=== PATIENT | male | born 1960 | race Caucasian/White ===

== ENCOUNTER 2016-12-30 20:45 | Emergency (ER) | payer MEDICARE, OTHER ==
[~2016-12-30 20:45] MED LIST: CLON-481 PO; DILA2TAB4 PO; FOLI1TAB PO; HYDRA50 PO; METO25 PO; NIFE90 PO; SEVEL800 PO; SUCR5CHW PO; WALKER ROLLING
[2016-12-30 20:47] VITALS: BP 173/82; PULSE 94; RESP 20; TEMP 97.8; O2SAT 96
== END 2016-12-30 21:27 | disposition left against medical advice (07) ==
LOC: NED 20:45
DX: R10.9 Unspecified abdominal pain (principal)
CPT/HCPCS: 99281

== ENCOUNTER 2017-04-14 08:26 | Inpatient (IN) | payer MEDICARE, OTHER ==
[~2017-04-14] VITALS: Ht 175.3 cm; Wt 68.8 kg
[2017-04-14] VITALS (7 sets, daily range): BP systolic 137–241; BP diastolic 80–135; PULSE 58–75; RESP 16–20; TEMP 97.2–98.3; O2SAT 90–97
--- NOTE | 2017-04-14 08:40 | PD ---
HPI Chief Complaint: syncope Time Seen by Provider: 08:36 Travel History International Travel<30 days: No Contact w/Intl Traveler<30days: No Traveled to known affect area: No History of Present Illness HPI 56-year-old male with history of end-stage renal disease on dialysis last dialysis on Monday, follows up with Dr. Patel, presents to the ER today because he has not been feeling well for several days, dizziness, had a syncopal episode this morning. He denies any fevers, chest pains, shortness of breath, or any other symptoms. He has also had a recent diagnosis of zoster on the left chest wall and has been taking antiviral medications for several days. Modifying Factors: None Associated Signs & Symptoms: Syncope Risk Factors: Dialysis, on antiviral medications for zoster PFSH Past Medical History Atrial Fibrillation: Yes Anxiety: Yes Depression: Yes Cardiovascular Problems: Yes (HTN) Diabetes: Yes GERD: Yes Hepatitis: Yes (c) Hypertension: Yes Insomnia: Yes Migraines: Yes Pancreatitis: Yes Pneumonia: Yes Renal Failure: Yes Thyroid Disease: Yes Past Surgical History Abdominal Surgery: Yes (exploratory laporoscopy) Appendectomy: Yes Other Surgery: Yes (av fistula) Social History Alcohol Use: No Tobacco Use: Yes (/2 ppd) Substance Use: Yes (marijuana sometimes) Allergies-Medications (Allergen,Severity, Reaction): Coded Allergies: morphine (Unverified Allergy, Intermediate, VOMITING, 04/14/17) Reported Meds & Prescriptions Reported Meds & Active Scripts Active Reported Prazosin (Prazosin HCl) 1 Mg Cap 1 Mg PO TID Fosrenol (Lanthanum Carbonate) 1,000 Mg Tab 1,000 Mg CHEW TIDPC Dialyvite Vitamin D 5000 (Cholecalciferol) 5,000 Unit Cap 5,000 Units PO DAILY Doxycycline Hyclate 100 Mg Cap 100 Mg PO BID Clonidine (Clonidine HCl) 0.3 Mg Tab 0.3 Mg PO TID Hydralazine (Hydralazine HCl) 100 Mg Tab 50 Mg PO QID Take with meals Nifedipine ER 24 HR (Nifedipine) 60 Mg Tab 60 Mg PO BID Losartan (Losartan Potassium) 100 Mg Tab 100 Mg PO DAILY Valacyclovir (Valacyclovir HCl) 500 Mg Tab 500 Mg PO BID Metoprolol Tartrate 50 Mg Tab 50 Mg PO BID Review of Systems Except as stated in HPI: all other systems reviewed are Neg Physical Exam Narrative GENERAL: Well-developed middle age white male patient currently in moderate distress. Awake and oriented 3. SKIN: Focused skin assessment warm/dry. Notable left chest wall zoster with vesicle formation and erythema. Mildly tender to palpation in the left chest wall. HEAD: Atraumatic. Normocephalic. EYES: Pupils equal and round. No scleral icterus. No injection or drainage. ENT: No nasal bleeding or discharge. Mucous membranes pink and moist. NECK: Trachea midline. No JVD. CARDIOVASCULAR: Regular rate and rhythm. No murmur appreciated. RESPIRATORY: No accessory muscle use. Clear to auscultation. Breath sounds equal bilaterally. GASTROINTESTINAL: Abdomen soft, non-tender, nondistended. Hepatic and splenic margins not palpable. MUSCULOSKELETAL: No obvious deformities. No clubbing. No cyanosis. No edema. NEUROLOGICAL: Awake and alert. No obvious cranial nerve deficits. Motor grossly within normal limits. Normal speech. PSYCHIATRIC: Appropriate mood and affect; insight and judgment normal. Data Data Last Documented VS Vital Signs Date Time Temp Pulse Resp B/P (MAP) Pulse Ox O2 Delivery O2 Flow Rate FiO2 04/14/17 08:44 92 Room Air 04/14/17 08:39 98.3 75 16 Orders Orders Electrocardiogram (04/14/17 08:37) Complete Blood Count With Diff (04/14/17 08:37) Comprehensive Metabolic Panel (04/14/17 08:37) Magnesium (Mg) (04/14/17 08:37) Ckmb (Isoenzyme) Profile (04/14/17 08:37) Troponin I (04/14/17 08:37) Act Partial Throm Time (Ptt) (04/14/17 08:37) Prothrombin Time / Inr (Pt) (04/14/17 08:37) Chest, Single Ap (04/14/17 08:37) Ct Brain W/O Iv Contrast(Rout) (04/14/17 08:37) Ecg Monitoring (04/14/17 08:37) Iv Access Insert/Monitor (04/14/17 08:37) Oximetry (04/14/17 08:37) Sodium Chloride 0.9% Flush (Ns Flush) (04/14/17 08:45) Labs Laboratory Tests Test 04/14/17 08:40 White Blood Count 7.4 TH/MM3 Red Blood Count 3.59 MIL/MM3 Hemoglobin 10.7 GM/DL Hematocrit 33.4 % Mean Corpuscular Volume 93.0 FL Mean Corpuscular Hemoglobin 29.8 PG Mean Corpuscular Hemoglobin Concent 32.1 % Red Cell Distribution Width 17.5 % Platelet Count 196 TH/MM3 Mean Platelet Volume 7.8 FL Neutrophils (%) (Auto) 83.3 % Lymphocytes (%) (Auto) 6.1 % Monocytes (%) (Auto) 6.9 % Eosinophils (%) (Auto) 3.1 % Basophils (%) (Auto) 0.6 % Neutrophils # (Auto) 6.2 TH/MM3 Lymphocytes # (Auto) 0.5 TH/MM3 Monocytes # (Auto) 0.5 TH/MM3 Eosinophils # (Auto) 0.2 TH/MM3 Basophils # (Auto) 0.0 TH/MM3 CBC Comment DIFF FINAL Differential Comment Prothrombin Time 11.7 SEC Prothromb Time International Ratio 1.1 RATIO Activated Partial Thromboplast Time 28.4 SEC Blood Urea Nitrogen 57 MG/DL Creatinine 9.65 MG/DL Random Glucose 162 MG/DL Total Protein 7.3 GM/DL Albumin 2.8 GM/DL Calcium Level 8.1 MG/DL Magnesium Level 1.6 MG/DL Alkaline Phosphatase 96 U/L Aspartate Amino Transf (AST/SGOT) 16 U/L Alanine Aminotransferase (ALT/SGPT) 24 U/L Total Bilirubin 0.4 MG/DL Sodium Level 135 MEQ/L Potassium Level 4.6 MEQ/L Chloride Level 101 MEQ/L Carbon Dioxide Level 20.4 MEQ/L Anion Gap 14 MEQ/L Estimat Glomerular Filtration Rate 6 ML/MIN Total Creatine Kinase 43 U/L Troponin I 0.04 NG/ML MDM Medical Decision Making Medical Screen Exam Complete: Yes Emergency Medical Condition: Yes Medical Record Reviewed: Yes Interpretation(s) EKG shows NSR, no ST elevation or depression, and no arrhythmias. No significant T-wave inversions. Laboratory Tests Test 04/14/17 08:40 Red Blood Count 3.59 MIL/MM3 (4.50-5.90) Hemoglobin 10.7 GM/DL (13.0-17.0) Hematocrit 33.4 % (39.0-51.0) Red Cell Distribution Width 17.5 % (11.6-17.2) Neutrophils (%) (Auto) 83.3 % (16.0-70.0) Lymphocytes (%) (Auto) 6.1 % (9.0-44.0) Lymphocytes # (Auto) 0.5 TH/MM3 (1.0-4.8) Prothrombin Time 11.7 SEC (9.8-11.6) Blood Urea Nitrogen 57 MG/DL (7-18) Creatinine 9.65 MG/DL (0.60-1.30) Random Glucose 162 MG/DL (74-106) Albumin 2.8 GM/DL (3.4-5.0) Calcium Level 8.1 MG/DL (8.5-10.1) Sodium Level 135 MEQ/L (136-145) Carbon Dioxide Level 20.4 MEQ/L (21.0-32.0) Estimat Glomerular Filtration Rate 6 ML/MIN (>89) Last [address] 04/14/17836 Signed Impressions: Service Date/Time: Friday, April 14, 2017 08:58 - CONCLUSION: Normal examination. Todd Price MD Chest X-Ray 04/14/17836 Signed Impressions: Service Date/Time: Friday, April 14, 2017 08:53 - CONCLUSION: No acute disease. No significant change has occurred. Todd Price MD Differential Diagnosis Syncopal episode: Dehydration versus metabolic issues versus sepsis versus medication side effects Narrative Course CT scan of the brain did not show any signs of acute injuries or issues. EKG did not show significant dysrhythmias. Lab work shows significant elevation of BUN and creatinine but likely to be baseline for his this dialysis patient who needs dialysis today. He has no significant electrolyte abnormalities other than that. Cardiac enzymes are negative. Vital signs are stable in the ER. Blood sugar is unremarkable. At this point, I'm not sure whether this is a side effect to his new medication, Ganciclovir, or whether this is something related to his needed dialysis. My plan would be to admit him at this point for syncope. Case was discussed with Dr. Casarez for admission. Diagnosis Primary Impression: Syncope Admitting Information Admitting Physician Requests: Admit Renée Hill MD Apr 14, 2017 08:40
[2017-04-14] MEDS ORDERED: SODIUM CHLORIDE 0.9% FLUSH 10 ML FLUSH IVF PRN (08:45)
[2017-04-14 08:50] LABS: AUTOMATED NEUTROPHIL # 6.2 TH/MM3 (1.8-7.7); BASOPHIL % 0.6 % (0.0-2.0); EOSINOPHIL # 0.2 TH/MM3 (0-0.4); EOSINOPHIL % 3.1 % (0.0-4.0); HEMATOCRIT 33.4 % (39.0-51.0); HEMO FLAGS DIFF FINAL; LYMPH % 6.1 % (9.0-44.0); LYMPHOCYTE # 0.5 TH/MM3 (1.0-4.8); MEAN CORPUSCULAR HEMOGLOBIN 29.8 PG (27.0-34.0); MEAN CORPUSCULAR HGB CONC 32.1 % (32.0-36.0); MONO % 6.9 % (0.0-8.0); NEUT % 83.3 % (16.0-70.0); PLATELET COUNT 196 TH/MM3 (150-450); RED BLOOD COUNT 3.59 MIL/MM3 (4.50-5.90); RED CELL DISTRIBUTION WIDTH 17.5 % (11.6-17.2); WHITE BLOOD COUNT 7.4 TH/MM3 (4.0-11.0)
[2017-04-14] MEDS ORDERED: DOXY100C PO (08:54)
[2017-04-14] MEDS ORDERED: FOSR1000 CHEW (08:54)
[2017-04-14] MEDS ORDERED: CLON0.3T PO (08:54)
[2017-04-14] MEDS ORDERED: LOSA100T PO (08:54)
[2017-04-14] MEDS ORDERED: METO50TA PO (08:54)
[2017-04-14] MEDS ORDERED: VALA500T PO (08:54)
[2017-04-14] MEDS ORDERED: PRAZ1CAP PO (08:54)
[2017-04-14] MEDS ORDERED: NIFE60TA58 PO (08:54)
[2017-04-14] MEDS ORDERED: DIALCAP PO (08:54)
[2017-04-14] MEDS ORDERED: HYDR-3801 PO (08:54)
[2017-04-14 09:02] LABS: APTT (PATIENT) 28.4 SEC (24.3-30.1); INTERNATIONAL NORMALIZED RATIO 1.1 RATIO; PROTHROMBIN TIME - PATIENT 11.7 SEC (9.8-11.6)
[2017-04-14 09:05] LABS: ANION GAP 14 MEQ/L (5-15); AST (GOT) 16 U/L (15-37); BICARBONATE 20.4 MEQ/L (21.0-32.0); BLOOD UREA NITROGEN 57 MG/DL (7-18); CHLORIDE 101 MEQ/L (98-107); GLOMERULAR FILTRATION RATE 6 ML/MIN (>89); MAGNESIUM 1.6 MG/DL (1.5-2.5); POTASSIUM 4.6 MEQ/L (3.5-5.1); SODIUM (NA) 135 MEQ/L (136-145)
[2017-04-14 09:07] LABS: ALT (GPT) 24 U/L (12-78)
--- NOTE | 2017-04-14 09:09 | RADRPT ---
EXAM DATE/TIME: 04/14/2017 08:53 [facility] COMPARISON: CHEST SINGLE AP, January 06, 2016, 14:17. INDICATIONS : Palpitations, short of breath, painful shingles across abdomen and chest MEDICAL HISTORY : renal failure, cardiovascular disease, diabetic, shingles SURGICAL HISTORY : None. ENCOUNTER: Initial ACUITY: 1 day PAIN SCORE: 10/10 LOCATION: Bilateral chest FINDINGS: A single view of the chest demonstrates the lungs to be symmetrically aerated without evidence of mas s, infiltrate or effusion. The cardiomediastinal contours reveals left ventricular cardiomegaly whic h appears compensated. Osseous structures are intact. Stable prominence of bronchovascular markings in the left lung base CONCLUSION: No acute disease. No significant change has occurred. Todd Price MD on April 14, 2017 at 9:06 Board Certified Radiologist. This report was verified electronically.
[2017-04-14 09:10] LABS: ALKALINE PHOSPHATASE 96 U/L (45-117); TOTAL BILIRUBIN ADULT 0.4 MG/DL (0.2-1.0)
[2017-04-14 09:14] LABS: CREATINE KINASE 43 U/L (39-308)
--- NOTE | 2017-04-14 09:17 | RADRPT ---
EXAM DATE/TIME: 04/14/2017 08:58 [facility] COMPARISON: No previous studies available for comparison. INDICATIONS : Syncope. RADIATION DOSE: 32.74 CTDIvol (mGy) MEDICAL HISTORY : Hypertension. Shingles. Renal failure, chronic. SURGICAL HISTORY : Appendectomy. ENCOUNTER: Initial ACUITY: 1 day PAIN SCALE: 0/10 LOCATION: cranial TECHNIQUE: Multiple contiguous axial images were obtained of the head. Using automated exposure control and adj ustment of the mA and/or kV according to patient size, radiation dose was kept as low as reasonably a chievable to obtain optimal diagnostic quality images. DICOM format image data is available electro nically for review and comparison. FINDINGS: CEREBRUM: The ventricles are normal for age. No evidence of midline shift, mass lesion, hemorrhage or acute in farction. No extra-axial fluid collections are seen. POSTERIOR FOSSA: The cerebellum and brainstem are intact. The 4th ventricle is midline. The cerebellopontine angle i s unremarkable. EXTRACRANIAL: The visualized portion of the orbits is intact. SKULL: The calvaria is intact. No evidence of skull fracture. CONCLUSION: Normal examination. Todd Price MD on April 14, 2017 at 9:15 Board Certified Radiologist. This report was verified electronically.
[2017-04-14] MEDS ORDERED: NALOXONE HCL 0.4 MG/ML AMP IV PUSH PRN (10:15)
[2017-04-14] MEDS ORDERED: SODIUM CHLORIDE 0.9% FLUSH 10 ML FLUSH IV FLUSH PRN ×2 (10:15→16:15)
--- NOTE | 2017-04-14 10:34 | HHI.HP ---
HPI [facility] Primary [facility] Physician No Primary Care Physician Admission Diagnosis syncope Diagnoses: Chief Complaint: dizziness Travel History International Travel<30 Days: No Contact w/Intl Traveler <30 Da: No Traveled to Known Affected Are: No History of Present Illness 56-year-old male with history of end-stage renal disease on dialysis last dialysis on Monday, follows up with Dr. Patel, HTN, HLD, questionable h/o Afib not on anticoagulation,. presents to the emergency room because he has not been feeling well for several days. He complains of dizziness, had a syncopal episode this morning and came for further evaluation. He has a rash on his left chest was diagnosed with shingles and is taking ganciclovir for several days now. He denies any fevers, chest pains, shortness of breath, or any other symptoms. Review of Systems Except as stated in HPI: all other systems reviewed are Neg Past Family Social History Past Medical History DM2 End-stage renal disease, on hemodialysis Hypertension Chronic intermittent left lower quadrant pain. Migraines Patient reports history of irregular heartbeat. Not on anticoagulation. Patient reports history of thyroid disease Past history of pneumonia Patient reports chronic pancreatitis Patient reports history of hepatitis C History of GERD Past Surgical History Expiratory laparotomy, 2014, reportedly which was negative. Left knee surgery Reported Medications Reported Meds & Active Scripts Active Reported Prazosin (Prazosin HCl) 1 Mg Cap 1 Mg PO TID Fosrenol (Lanthanum Carbonate) 1,000 Mg Tab 1,000 Mg CHEW TIDPC Dialyvite Vitamin D 5000 (Cholecalciferol) 5,000 Unit Cap 5,000 Units PO DAILY Doxycycline Hyclate 100 Mg Cap 100 Mg PO BID Clonidine (Clonidine HCl) 0.3 Mg Tab 0.3 Mg PO TID Hydralazine (Hydralazine HCl) 100 Mg Tab 50 Mg PO QID Take with meals Nifedipine ER 24 HR (Nifedipine) 60 Mg Tab 60 Mg PO BID Losartan (Losartan Potassium) 100 Mg Tab 100 Mg PO DAILY Valacyclovir (Valacyclovir HCl) 500 Mg Tab 500 Mg PO BID Metoprolol Tartrate 50 Mg Tab 50 Mg PO BID Allergies: Coded Allergies: morphine (Unverified Allergy, Intermediate, VOMITING, 04/14/17) Family History Family history of heart disease, diabetes. Social History Tobacco use quarter pack per day, has smoked since teenage years. Denies alcohol use. Denies any illicit drugs. Lives with his nephew. Moved to [place] from [place]. Physical Exam Vital Signs Vital Signs Date Time Temp Pulse Resp B/P (MAP) Pulse Ox O2 Delivery O2 Flow Rate FiO2 04/14/17 08:44 92 Room Air 04/14/17 08:39 98.3 75 16 137/80 (99) 90 Room Air Physical Exam GENERAL: This is a well-nourished, well-developed patient, in no apparent distress. SKIN: No rashes, ecchymoses or lesions. Cool and dry. HEAD: Atraumatic. Normocephalic. No temporal or scalp tenderness. EYES: Pupils equal round and reactive. Extraocular motions intact. No scleral icterus. No injection or drainage. ENT: Nose without bleeding, purulent drainage or septal hematoma. Throat without erythema, tonsillar hypertrophy or exudate. Uvula midline. Airway patent. NECK: Trachea midline. No JVD or lymphadenopathy. Supple, nontender, no meningeal signs. CARDIOVASCULAR: Regular rate and rhythm without murmurs, gallops, or rubs. RESPIRATORY: Clear to auscultation. Breath sounds equal bilaterally. No wheezes , rales, or rhonchi. GASTROINTESTINAL: Abdomen soft, non-tender, nondistended. No hepato-splenomegaly , or palpable masses. No guarding. MUSCULOSKELETAL: Extremities without clubbing, cyanosis, or edema. No joint tenderness, effusion, or edema noted. No calf tenderness. Negative Homans sign bilaterally. NEUROLOGICAL: Awake and alert. Cranial nerves II through XII intact. Motor and sensory grossly within normal limits. Five out of 5 muscle strength in all muscle groups. Normal speech. Laboratory Laboratory Tests Test 04/14/17 08:40 White Blood Count 7.4 Red Blood Count 3.59 Hemoglobin 10.7 Hematocrit 33.4 Mean Corpuscular Volume 93.0 Mean Corpuscular Hemoglobin 29.8 Mean Corpuscular Hemoglobin Concent 32.1 Red Cell Distribution Width 17.5 Platelet Count 196 Mean Platelet Volume 7.8 Neutrophils (%) (Auto) 83.3 Lymphocytes (%) (Auto) 6.1 Monocytes (%) (Auto) 6.9 Eosinophils (%) (Auto) 3.1 Basophils (%) (Auto) 0.6 Neutrophils # (Auto) 6.2 Lymphocytes # (Auto) 0.5 Monocytes # (Auto) 0.5 Eosinophils # (Auto) 0.2 Basophils # (Auto) 0.0 CBC Comment DIFF FINAL Differential Comment Prothrombin Time 11.7 Prothromb Time International Ratio 1.1 Activated Partial Thromboplast Time 28.4 Blood Urea Nitrogen 57 Creatinine 9.65 Random Glucose 162 Total Protein 7.3 Albumin 2.8 Calcium Level 8.1 Magnesium Level 1.6 Alkaline Phosphatase 96 Aspartate Amino Transf (AST/SGOT) 16 Alanine Aminotransferase (ALT/SGPT) 24 Total Bilirubin 0.4 Sodium Level 135 Potassium Level 4.6 Chloride Level 101 Carbon Dioxide Level 20.4 Anion Gap 14 Estimat Glomerular Filtration Rate 6 Total Creatine Kinase 43 Troponin I 0.04 Result Diagram: 04/14/1783904/14/17839 Imaging Last Impressions Head CT 04/14/17836 Signed Impressions: Service Date/Time: Friday, April 14, 2017 08:58 - CONCLUSION: Normal examination. Todd Price MD Chest X-Ray 04/14/17836 Signed Impressions: Service Date/Time: Friday, April 14, 2017 08:53 - CONCLUSION: No acute disease. No significant change has occurred. MD Martín Hollinsi VTE Risk Assessment Caprini VTE Risk Assessment: Mod/High Risk (score >= 2) Caprini Risk Assessment Model Point Value = 1 Point Value = 2 Point Value = 3 Point Value = 5 Age 41-60 Minor surgery BMI > 25 kg/m2 Swollen legs Varicose veins or History of unexplained or recurrent spontaneous Oral contraceptives or hormone replacement Sepsis (< 1 month) Serious lung disease, including pneumonia (< 1 month) Abnormal pulmonary function Acute myocardial infarction Congestive heart failure (< 1 month) History of inflammatory bowel disease Medical patient at bed rest Age 61-74 Arthroscopic surgery Major open surgery (> 45 min) Laparoscopic surgery (> 45 min) Malignancy Confined to bed (> 72 hours) Immobilizing plaster cast Central venous access Age >= 75 History of VTE Family history of VTE Factor V Leiden Prothrombin 44129T Lupus anticoagulant Anticardiolipin antibodies Elevated serum homocysteine Heparin-induced thrombocytopenia Other congenital or acquired thrombophilia Stroke (< 1 month) Elective arthroplasty Hip, pelvis, or leg fracture Acute spinal cord injury (< 1 month) Prophylaxis Regimen Total Risk Factor Score Risk Level Prophylaxis Regimen 0-1 Low Early ambulation 2 Moderate Order ONE of the following: *Sequential Compression Device (SCD) *Heparin 5000 units SQ BID 3-4 Higher Order ONE of the following medications: *Heparin 5000 units SQ TID *Enoxaparin/Lovenox 40 mg SQ daily (WT < 150 kg, CrCl > 30 mL/min) *Enoxaparin/Lovenox 30 mg SQ daily (WT < 150 kg, CrCl > 10-29 mL/min) *Enoxaparin/Lovenox 30 mg SQ BID (WT < 150 kg, CrCl > 30 mL/min) AND/OR *Sequential Compression Device (SCD) 5 or more Highest Order ONE of the following medications: *Heparin 5000 units SQ TID (Preferred with Epidurals) *Enoxaparin/Lovenox 40 mg SQ daily (WT < 150 kg, CrCl > 30 mL/min) *Enoxaparin/Lovenox 30 mg SQ daily (WT < 150 kg, CrCl > 10-29 mL/min) *Enoxaparin/Lovenox 30 mg SQ BID (WT < 150 kg, CrCl > 30 mL/min) AND *Sequential Compression Device (SCD) Assessment and Plan Assessment and Plan Syncope CT head normal Check orthostatic BP Monitor VS closely EKG no changes from baseline Monitor on Telemetry. Holter monitor Neuro checks. Fall precautions Will do US carotids and 2D ECHO Left chest zoster Continue ganciclovir Anxiety/deoresion Consult psychiatry. Add xanax prn End-stage renal disease Continue Dialysis per nephrology. Diabetes mellitus type 2. Continue home meds. Senescent on dialysis. Monitor blood glucose. Hypertension Restart all blood pressure medications. Monitor VS Tobacco use. Counselled. Cessation advised. DVT Prophylaxis. SCDs/TEDs, renal dose lovenox Code Status full code Discussed Condition With patient, nurse, ED physician Physician Certification 2 Midnight Certification Type: Admission for Inpatient Services Order for Inpatient Services The services are ordered in accordance with Medicare regulations or non- Medicare payer requirements, as applicable. In the case of services not specified as inpatient-only, they are appropriately provided as inpatient services in accordance with the 2-midnight benchmark. Estimated LOS (days): 3 days is the estimated time the patient will need to remain in the hospital, assuming treatment plan goals are met and no additional complications. Post-Hospital Plan: Home Jolanta Casarez MD Apr 14, 2017 10:34
--- NOTE | 2017-04-14 11:26 | RADRPT ---
EXAM DATE/TIME: 04/14/2017 10:34 [facility] COMPARISON: No previous studies available for comparison. INDICATIONS : Syncope. MEDICAL HISTORY : Myocardial infarction. Hypertension. Gastroesophageal reflux disease. Hypothyroidism. A-fib. Pneumoni a. Renal failure. Hepatitis C. SURGICAL HISTORY : Appendectomy. Exploratory laporoscopic surgery. AV fistula. ENCOUNTER: Initial ACUITY: 1 day PAIN SCORE: 0/10 LOCATION: Bilateral neck PEAK SYSTOLIC VELOCITIES (cm/sec): ICA/CCA RATIO: Right: 0.6 Left: 1.0 ICA: Right: 53.7 Left: 102.2 CCA: Right: 93.1 Left: 103.2 ECA: Right: 86.6 Left: 100.0 VERTEBRAL: Right: 47.1 antegrade Left: 45.3 antegrade Elevated flow velocities and ICA/CCA ratios have been found to correlate with increased degrees of vessel stenosis, calculated as percentage of diameter relative to a normal segment of distal ICA/CCA FINDINGS: RIGHT CAROTID: No significant stenosis is visualized. Moderate amount of plaque. The waveforms are within normal mendieta its. LEFT CAROTID: No significant stenosis is visualized. Moderate amount of plaque. The waveforms are within normal mendieta its. VERTEBRAL ARTERIES: Antegrade flow is seen in both vertebral arteries. MISCELLANEOUS: None. CONCLUSION: Moderate amount of plaque but no hemodynamically significant stenosis in either carotid artery. Sb Zepeda MD on April 14, 2017 at 11:24 Board Certified Radiologist. This report was verified electronically.
[2017-04-14] MEDS ORDERED: LACTULOSE SYRUP 20 GM/30 ML CUP PO PRN (12:00)
[2017-04-14] MEDS ORDERED: BISACODYL 10 MG SUPP RECTAL PRN (12:00)
[2017-04-14] MEDS ORDERED: ONDANSETRON HCL 4 MG/2 ML VIAL IVP PRN (12:00)
[2017-04-14] MEDS: cloNIDine HCL 0.3 MG TAB PO SCH ×2 (12:57→18:21)
[2017-04-14] MEDS: hydrALAZINE HCL 100 MG TAB PO SCH ×3 (12:57→20:50)
[2017-04-14] MEDS: PRAZOSIN HCL 1 MG CAP PO SCH ×2 (12:58→18:22)
[2017-04-14] MEDS: ENOXAPARIN SODIUM 30 MG/0.3 ML SYRINGE SQ SCH (12:58)
[2017-04-14] MEDS: LANTHANUM CARBONATE 500 MG CHEWABLE TABLET CHEW SCH ×2 (12:59→18:21)
[2017-04-14] MEDS ORDERED: SODIUM CHLOR 0.9% 1000 ML INJ 1,000 ML OTHER PRN ×2 (16:03)
[2017-04-14] MEDS ORDERED: SODIUM CHLOR 0.9% 1000 ML INJ 1,000 ML IV PRN (16:03)
[2017-04-14] MEDS ORDERED: GENTAMICIN SULFATE (DIALYSIS USE ONLY) 20 MG/2 ML VIAL OTHER PRN (16:15)
[2017-04-14] MEDS ORDERED: diphenhydrAMINE HCL 25 MG CAP PO PRN (16:15)
[2017-04-14] MEDS ORDERED: MANNITOL 12.5 GM/50 ML VIAL IV PRN (16:15)
[2017-04-14] MEDS ORDERED: GELATIN 12 MM/7 MM FOAM TOP PRN (16:15)
[2017-04-14] MEDS ORDERED: ALBUMIN HUMAN 25% 25 GM/100 ML BAGP IV PRN (16:15)
[2017-04-14] MEDS ORDERED: HEPARIN SODIUM - IV 10,000 UNITS/10 ML VIAL PRN (16:15)
[2017-04-14] MEDS ORDERED: NITROGLYCERIN 0.4 MG SL 25 TABS/BTL SL PRN (16:15)
[2017-04-14] MEDS ORDERED: ONDANSETRON HCL 4 MG/2 ML VIAL IV PUSH PRN (16:15)
[2017-04-14] MEDS ORDERED: HEPARIN SODIUM - IV 10,000 UNITS/10 ML VIAL IV FLUSH PRN (16:15)
[2017-04-14] MEDS ORDERED: EPOETIN ALFA 10,000 UNITS/ML VIAL IV PRN (16:15)
--- NOTE | 2017-04-14 16:26 | EKG ---
Date Performed: 04/14/2017 Time Performed: 08:42:12 PTAGE: 56 years EKG: Sinus rhythm MODERATE VOLTAGE CRITERIA FOR LVH, CONSIDER NORMAL VARIANT NONSPECIFIC T-WAVE ABNORMALITY BORDERLINE ECG Since PREVIOUS TRACING , no significant change noted PREVIOUS TRACIN03/31/2017 11.31 DOCTOR: Maureen Fermin Interpretating Date/Time 04/14/2017 16:25:10
--- NOTE | 2017-04-14 17:53 | ECHRPT ---
Indication: CVA/TIA CONCLUSIONS The left ventricular systolic function is low normal with an estimated ejection fraction in the rang e of 50- 55%. Mild concentric left ventricular hypertrophy. Trace mitral valve regurgitation. Trace aortic valve regurgitation. There is trace tricuspid valve regurgitation. A moderate left sided pleural effusion is noted. BP: / HR: Rhythm: Sinus MEASUREMENTS (Male / Female) Normal Values Technical Quality:Good 2D ECHO LV Diastolic Diameter PLAX 5.7 cm 4.2 - 5.9 / 3.9 - 5.3 cm LV Systolic Diameter PLAX 4.4 cm IVS Diastolic Thickness 1.6 cm 0.6 - 1.0 / 0.6 - 0.9 cm LVPW Diastolic Thickness 1.0 cm 0.6 - 1.0 / 0.6 - 0.9 cm LV Relative Wall Thickness 0.5 RV Internal Dim ED PLAX 3.1 cm LA Systolic Diameter LX 4.8 cm 3.0 - 4.0 / 2.7 - 3.8 cm DOPPLER AV Peak Velocity 194.0 cm/s AV Peak Gradient 15.1 mmHg LVOT Peak Velocity 104.0 cm/s LVOT Peak Gradient 4.3 mmHg MV Peak Velocity 152.0 cm/s MV Peak Gradient 9.2 mmHg MV Mean Velocity 70.1 cm/s MV Mean Gradient 3.0 mmHg MR Peak Velocity 462.0 cm/s MR Peak Gradient 85.4 mmHg Mitral E Point Velocity 116.0 cm/s Mitral A Point Velocity 110.0 cm/s Mitral E to A Ratio 1.1 LV E' Lateral Velocity 7.1 cm/s Mitral E to LV E' Lateral Ratio 16.3 LV E' Septal Velocity 4.6 cm/s Mitral E to LV E' Septal Ratio 25.3 TR Peak Velocity 291.0 cm/s TR Peak Gradient 33.9 mmHg Right Atrial Pressure 5.0 mmHg Pulmonary Artery Systolic Pressu 38.9 mmHg Right Ventricular Systolic Press 38.9 mmHg FINDINGS LEFT VENTRICLE Normal left ventricular size. Mild concentric left ventricular hypertrophy. The left ventricular systolic function is low normal with an estimated ejection fraction in the rang e of 50- 55%. RIGHT VENTRICLE Normal right ventricular size and systolic function. LEFT ATRIUM The left atrial size is mildly dilated. RIGHT ATRIUM The right atrial size is normal. ATRIAL SEPTUM Normal atrial septal thickness without atrial level shunting by limited color doppler interrogation. AORTA The aortic root and proximal ascending aorta are normal in size on limited imaging. MITRAL VALVE Moderate thickening of the mitral valve leaflets. Moderate mitral annular calcification. Trace mitral valve regurgitation. No mitral valve stenosis. AORTIC VALVE Aortic valve sclerosis is present. Mild thickening of the aortic valve leaflets. Trace aortic valve regurgitation. TRICUSPID VALVE Structurally normal tricuspid valve. There is trace tricuspid valve regurgitation. The estimated pulmonary arterial pressure is 38.9 mmHg. No tricuspid valve stenosis. PULMONARY VALVE No pulmonary valve regurgitation or stenosis. VESSELS The inferior vena cava is normal in size. PERICARDIUM A moderate left sided pleural effusion is noted. Tim Luke DO (Electronically Signed) Final Date:14 April 2017 17:51 Amended: 14 April 2017 18:32
--- NOTE | 2017-04-14 18:19 | MB ---
cc: OSVALDO NOBLE MD DATE OF CONSULTATION 04/14/17 REASON FOR CONSULTATION End-stage renal disease on hemodialysis for management. HISTORY OF PRESENT ILLNESS This is a 56-year-old male with past medical history of hypertension, diabetes mellitus, end-stage renal disease on hemodialysis Monday, and Monday, hepatitis C, gastroesophageal reflux disease who was brought to the hospital because of dizziness and confusion. I was called to see the patient for the management of dialysis. The patient has been on hemodialysis Monday, and Monday ago following with Dr. Matthews in [facility]. The patient was recently admitted at [facility]. According to the patient, he was discharged and he went for dialysis on of this week. He did not go yesterday because of he was feeling sick and tired and had dizziness and has been confused. He sometimes forgets his name and does not know exactly why he came in here and keeps repeating things. The patient seems to be noncompliant with his hemodialysis treatment. I have called [facility] and found out that he did not go there yesterday and they told me also that he has been noncompliant with his hemodialysis treatment. The patient recently had a rash on his lower chest and he was diagnosed with shingles and has been on Gancyclovir. He has no reported history of fever. Denies any chest pain. Occasionally, he has shortness of breath. PAST MEDICAL HISTORY 1. Hypertension, 2. Diabetes mellitus, 3. Chronic anemia, 4. Gastroesophageal reflux disease, 5. Hepatitis C, 6. End-stage renal disease on hemodialysis. PAST SURGICAL HISTORY 1. Laparotomy 2. Left knee surgery 3. Left arm AV fistula surgery. REVIEW OF SYSTEMS The patient has generalized weakness, feeling tired, has dizziness and feeling weak. There is no history of fever. He has mild shortness of breath, especially on exertion. No chest pain. He has been confused off and on and tends to forget things and sometime even does not remember his name, according to the patient, and he does not know exactly why he is here and keeps repeating things. He denies any abdominal pain. There is no history of diarrhea. SOCIAL HISTORY The patient has history of smoking, smoked 1/3 to 1/4 pack per day. There is no history of heavy alcoholism. FAMILY HISTORY Positive for heart disease and diabetes mellitus. ALLERGIES MORPHINE MEDICATIONS Currently, he is on following medications 1. Vibramycin 100 mg b.i.d. 2. Lopressor 50 mg b.i.d. 3. Nifedipine 60 mg b.i.d. 4. Valtrex 500 mg b.i.d. 5. vitamin D3 5000 units once a day. 6. Cozaar 100 mg daily. 7. Lovenox 30 mg subcu q. 24-hour. 8. Hydralazine 50 mg q.i.d. 9. Clonidine 0.3 mg t.i.d. 10. Minipress 1 mg t.i.d. 11. Fosrenol 1000 mg t.i.d. 12. Zofran as needed. 13. Ambien as needed. 14. Xanax as needed. EXAMINATION The patient is awake, alert. He is currently on dialysis last blood pressure is 148.97, temperature 97.2, oxygen saturation is 97% on room air. Pupils are mid constricted. Nonicteric sclera. Conjunctivae normal. Neck: Supple. JVD is not elevated. Lungs: The patient has bilateral good air entry with bibasilar wheezing. Heart: Sinus regular rhythm. Abdomen is soft lax. There is no tenderness. Bowel sounds positive. Extremities: There is mild edema in the legs, left arm AV fistula with good bruit investigation WBC count is 7.4, hemoglobin 10.70, platelet count 196, neutrophils 83.3%, sodium 35, potassium 4.6, chloride 101, bicarb 20.4, BUN 57, creatinine 9.6, calcium is 8.1, INR is 1.1. IMAGING STUDIES The patient has CT scan of the brain done which shows that he has normal examination. Ultrasound of the carotid arteries done which shows that he has moderate amount of leg but no hemodynamically significant stenosis. Chest x-ray Was done which shows lung escobar clear. ASSESSMENT/PLAN 1. Confusion, dizziness, possibly uremia. 2. End-stage renal disease on hemodialysis. 3. Hypertension 4. Diabetes mellitus 5. Anemia The patient has history of being noncompliant with hemodialysis. He recently has been admitted [facility] and also his shingles has been on get the valganciclovir and BUN and creatinine are elevated. He missed dialysis yesterday so will give him [facility] today and then put him back on his regular schedule for dialysis tomorrow so far the workup for dizziness is negative. If she remained stable possibly can be discharged tomorrow on Monday after dialysis. Thank you for the consultation. I will follow the patient while he is in the hospital MD NUVIA Lance/ /3:58 PM /5:55 PM
[2017-04-14] MEDS: ALPRAZolam 0.25 MG TAB PO PRN (18:21)
[2017-04-14] MEDS: NIFEdipine 60 MG SUSTAINED RELEASE TAB PO SCH (20:49)
[2017-04-14] MEDS: DOXYCYCLINE HYCLATE 100 MG CAP PO SCH (20:49)
[2017-04-14] MEDS: valACYclovir HCL 500 MG TAB PO SCH (20:50)
[2017-04-14] MEDS: SODIUM CHLORIDE 0.9% FLUSH 10 ML FLUSH IV FLUSH SCH (20:50)
[2017-04-14] MEDS: DOCUSATE SODIUM 50 MG/SENNA 8.6 MG TAB PO SCH (20:50)
[2017-04-14] MEDS ORDERED: MAGNESIUM HYDROXIDE SUSP 30 ML CUP PO PRN (21:00)
[2017-04-14] MEDS ORDERED: ZOLPIDEM TARTRATE 5 MG TAB PO PRN (21:00)
[2017-04-14] MEDS ORDERED: SENNOSIDES 8.6 MG TAB PO PRN (21:00)
[2017-04-14] MEDS: ACETAMINOPHEN 325 MG TAB PO PRN (21:00)
[2017-04-14] MEDS ORDERED: METOPROLOL TARTRATE 50 MG TAB PO SCH (21:00)
[2017-04-14] MEDS: cloNIDine HCL 0.1 MG TAB PO PRN (23:20)
[2017-04-15] VITALS (13 sets, daily range): BP systolic 110–222; BP diastolic 66–114; PULSE 54–88; RESP 16–20; TEMP 97.4–98.6; O2SAT 90–98
[2017-04-15] MEDS ORDERED: LORazepam 2 MG/ML VIAL IV PUSH ONE ×2 (01:00→10:15)
[2017-04-15] MEDS ORDERED: hydrALAZINE HCL 50 MG TAB PO ONE (01:15)
[2017-04-15] MEDS: ALPRAZolam 0.25 MG TAB PO PRN ×2 (08:03→21:42)
[2017-04-15] MEDS: CHOLECALCIFEROL (VIT D3) 5000 UNIT CAP PO SCH (09:00)
[2017-04-15] MEDS: SODIUM CHLORIDE 0.9% FLUSH 10 ML FLUSH IV FLUSH SCH ×2 (09:00→21:45)
[2017-04-15 09:05] LABS: AUTOMATED NEUTROPHIL # 4.2 TH/MM3 (1.8-7.7); BASOPHIL % 0.8 % (0.0-2.0); EOSINOPHIL # 0.2 TH/MM3 (0-0.4); EOSINOPHIL % 4.3 % (0.0-4.0); HEMATOCRIT 35.1 % (39.0-51.0); HEMO FLAGS DIFF FINAL; LYMPH % 10.6 % (9.0-44.0); LYMPHOCYTE # 0.6 TH/MM3 (1.0-4.8); MEAN CELL VOLUME 92.9 FL (80.0-100.0); MEAN CORPUSCULAR HEMOGLOBIN 30.1 PG (27.0-34.0); MEAN CORPUSCULAR HGB CONC 32.3 % (32.0-36.0); MONO % 5.9 % (0.0-8.0); NEUT % 78.4 % (16.0-70.0); PLATELET COUNT 197 TH/MM3 (150-450); RED BLOOD COUNT 3.78 MIL/MM3 (4.50-5.90); RED CELL DISTRIBUTION WIDTH 17.6 % (11.6-17.2); WHITE BLOOD COUNT 5.3 TH/MM3 (4.0-11.0)
[2017-04-15 09:20] LABS: BICARBONATE 25.9 MEQ/L (21.0-32.0)
--- NOTE | 2017-04-15 10:18 | HHI.NPPN ---
Subjective History of Present Illness 56-year-old male with past medical history of hypertension, diabetes mellitus, end-stage renal disease on hemodialysis Monday, and Monday, hepatitis C, gastroesophageal reflux disease who was brought to the hospital because of dizziness and confusion. I was called to see the patient for the management of dialysis. The patient has been on hemodialysis Monday, and Monday ago following with Dr. Matthews in [facility]. Additional Remarks Patient is now on HD, asking for Ativan for anxiety, no SOB, BP is elevated. Review of Systems General Constitutional: Fatigue Respiratory Lungs: SOB Cardiovascular Cardiac: Edema, MARIE Objective Data Data Vital Signs Date Time Temp Pulse Resp B/P (MAP) Pulse Ox O2 Delivery O2 Flow Rate FiO2 04/15/17 05:03 70 04/15/17 04:00 98.2 72 20 198/114 (142) 94 04/15/17 02:35 186/100 (128) 04/15/17 00:55 79 16 206/105 (138) 95 04/15/17 00:52 210/110 (143) 04/15/17 00:50 82 16 219/112 (147) 95 04/15/17 00:45 98.5 79 16 222/105 (144) 95 04/14/17 23:18 98.2 58 16 241/116 (157) 95 04/14/17 21:03 233/135 (167) 04/14/17 21:02 97.6 72 20 232/133 (166) 95 04/14/17 11:54 97.2 70 20 148/97 (114) 97 04/14/17 11:11 04/14/17 10:39 96 -: 04/15/17 0830 04/15/17 0830 Physical Exam General Appearance: No Acute Distress, Comfortable Eyes Eye Exam: Pupils Equal Throat Throat Exam: Oral Mucosa [place] & Moist Pulmonary Resp Exam: Clear Bilaterally, Breath Sounds Equal, No Distress Gastrointestinal/Abdomen GI Exam: Soft, Non-Tender, Bowel Sounds Present Integumentary Skin Exam: Clear, Warm Extremeties Extremities Exam: Trace Edema Neurologic Neuro Exam: Alert, Awake Psychiatric Psych Exam: Appropriate Responses Assessment/Plan Assessment Summary: Fluid/Volume Overload, Hypertension, End Stage Renal Disease Problem List: (1) Syncope ICD Codes: R55 - Syncope and collapse Status: Acute (2) Neuropathy ICD Codes: G62.9 - Polyneuropathy, unspecified Status: Acute (3) Generalized weakness ICD Codes: R53.1 - Weakness Status: Acute (4) Hypertension ICD Codes: I10 - Essential (primary) hypertension Status: Acute (5) ESRD (end stage renal disease) ICD Codes: N18.6 - End stage renal disease Status: Acute Plan Patient has been non compliant. Mentation is better and less confused. BP is still elevated, will D/C Metoprolol and add Labetalol. HD now, he is TTS. Control BP, has been on multiple meds. Discuss with the patient to be compliant with HD and meds. Jeovany Singh MD Apr 15, 2017 10:18
[2017-04-15] MEDS: cloNIDine HCL 0.1 MG TAB PO PRN (10:21)
[2017-04-15] MEDS: ACETAMINOPHEN 325 MG TAB PO PRN (11:10)
[2017-04-15] MEDS: PRAZOSIN HCL 1 MG CAP PO SCH ×3 (11:50→17:13)
[2017-04-15] MEDS: hydrALAZINE HCL 100 MG TAB PO SCH ×4 (11:51→21:42)
[2017-04-15] MEDS: DOCUSATE SODIUM 50 MG/SENNA 8.6 MG TAB PO SCH ×2 (11:51→21:42)
[2017-04-15] MEDS: LANTHANUM CARBONATE 500 MG CHEWABLE TABLET CHEW SCH ×3 (11:51→17:13)
[2017-04-15] MEDS: cloNIDine HCL 0.3 MG TAB PO SCH ×3 (11:52→17:13)
[2017-04-15] MEDS: LOSARTAN 50 MG TAB PO SCH (11:52)
[2017-04-15] MEDS: valACYclovir HCL 500 MG TAB PO SCH ×3 (11:52→21:41)
[2017-04-15] MEDS: DOXYCYCLINE HYCLATE 100 MG CAP PO SCH ×2 (11:52→21:42)
[2017-04-15] MEDS: ENOXAPARIN SODIUM 30 MG/0.3 ML SYRINGE SQ SCH (12:00)
[2017-04-15] MEDS: NIFEdipine 60 MG SUSTAINED RELEASE TAB PO SCH ×2 (12:12→21:42)
--- NOTE | 2017-04-15 12:40 | PD.PSY.CON ---
Provisional Diagnosis Admission Date Apr 14, 2017 at 10:24 History of Present Illness Service Psychiatry Consult Requested By Attending physician Reason for Consult Patient not available Primary Care Physician No Primary Care Physician HPI Patient unavailable for consultation today as he was in dialysis. Past Family Social History Coded Allergies: morphine (Verified Allergy, Intermediate, VOMITING, 04/19/17) Active Scripts Lanthanum (Fosrenol) 500 Mg Tab, 1000 MG CHEW TIDPC for Electrolyte Replacement , #90 EA 3 Refills Prov:Sb Gordillo MD 04/16/17 Losartan (Cozaar) 50 Mg Tab, 100 MG PO DAILY for Blood Pressure Management, #30 TAB 3 Refills Prov:Sb Gordillo MD 04/16/17 Nifedipine ER 24 HR (Nifedipine ER 24 HR) 60 Mg Tab, 60 MG PO BID for Blood Pressure Management, #60 TAB Prov:Sb Gordillo MD 04/16/17 Labetalol (Labetalol) 100 Mg Tab, 100 MG PO Q12HR for Blood Pressure Management , #60 TAB 3 Refills Prov:Sb Gordillo MD 04/16/17 Prazosin (Minipress) 1 Mg Cap, 1 MG PO TID for Blood Pressure Management, #120 CAP 3 Refills Prov:Sb Gordillo MD 04/16/17 Hydralazine (Hydralazine) 100 Mg Tab, 50 MG PO QID for Blood Pressure Management , #120 TAB 3 Refills Take with meals Prov:Sb Gordillo MD 04/16/17 Clonidine (Catapres) 0.3 Mg Tab, 0.3 MG PO TID for Blood Pressure Management, # 90 TAB 3 Refills Prov:Sb Gordillo MD 04/16/17 Valacyclovir (Valtrex) 500 Mg Tab, 1000 MG PO Q8HR for Infection, #12 TAB Prov:Sb Gordillo MD 04/16/17 Reported Medications Cholecalciferol (Dialyvite Vitamin D 5000) 5,000 Unit Cap, 5000 UNITS PO DAILY for Nutritional Supplement, CAP 0 Refills 04/14/17 Doxycycline Hyclate (Doxycycline Hyclate) 100 Mg Cap, 100 MG PO BID for Infection, CAP 0 Refills 04/14/17 Discontinued Reported Medications Prazosin (Prazosin) 1 Mg Cap, 1 MG PO TID for Blood Pressure Management, #90 CAP 0 Refills 04/14/17 Lanthanum (Fosrenol) 1,000 Mg Tab, 1000 MG CHEW TIDPC for Reduce Phosphorous, # 90 TAB 0 Refills 04/14/17 Clonidine (Clonidine) 0.3 Mg Tab, 0.3 MG PO TID for Blood Pressure Management, # 60 TAB 0 Refills 04/14/17 Hydralazine (Hydralazine) 100 Mg Tab, 50 MG PO QID for Blood Pressure Management , TAB 0 Refills Take with meals 04/14/17 Nifedipine ER 24 HR (Nifedipine ER 24 HR) 60 Mg Tab, 60 MG PO BID, #30 TAB 0 Refills 04/14/17 Losartan (Losartan) 100 Mg Tab, 100 MG PO DAILY for Blood Pressure Management, # 30 TAB 0 Refills 04/14/17 Valacyclovir (Valacyclovir) 500 Mg Tab, 500 MG PO BID for Mgmt Viral Infection, #60 TAB 0 Refills 04/14/17 Metoprolol Tartrate (Metoprolol Tartrate) 50 Mg Tab, 50 MG PO BID, #60 TAB 0 Refills 04/14/17 Current Medications Medications (Trade) Dose Ordered Sig/Abiola Route Start Time Stop Time Status Last Admin (NS Flush) 2 ml UNSCH PRN IV FLUSH 04/14/17 10:15 (NS Flush) 2 ml BID IV FLUSH 04/14/17 21:00 04/14/17 20:50 (Zofran Inj) 4 mg Q6HR PRN IVP 04/14/17 12:00 (Ambien) 5 mg HS PRN PO 04/14/17 21:00 (Lovenox Inj) 30 mg Q24H SQ 04/14/17 12:00 04/14/17 12:58 (Narcan Inj) 0.4 mg UNSCH PRN IV PUSH 04/14/17 10:15 ([place]-Colace) 1 tab BID PO 04/14/17 21:00 04/15/17 11:51 (Milk Of Magnesia Liq) 30 ml Q12HR PRN PO 04/14/17 21:00 (Senokot) 17.2 mg Q12HR PRN PO 04/14/17 21:00 (Dulcolax Supp) 10 mg DAILY PRN RECTAL 04/14/17 12:00 (Lactulose Liq) 30 ml DAILY PRN PO 04/14/17 12:00 (Vitamin D3) 5,000 units DAILY PO 04/15/17 09:00 04/15/17 09:00 (Catapres) 0.3 mg TID PO 04/14/17 13:00 04/15/17 11:52 (Vibramycin) 100 mg BID PO 04/14/17 21:00 04/15/17 11:52 (Apresoline) 50 mg QID PO 04/14/17 13:00 04/15/17 11:51 (Fosrenol Chew) 1,000 mg TIDPC CHEW 04/14/17 13:30 04/15/17 11:51 (Cozaar) 100 mg DAILY PO 04/15/17 09:00 04/15/17 11:52 (Procardia Xl) 60 mg BID PO 04/14/17 21:00 04/15/17 12:12 (Minipress) 1 mg TID PO 04/14/17 13:00 04/15/17 11:50 (Valtrex) 500 mg BID PO 04/14/17 21:00 04/15/17 11:52 (Xanax) 0.25 mg Q8H PRN PO 04/14/17 12:45 04/15/17 08:03 Sodium Chloride 1,000 ml @ 0 mls/hr Q0M PRN OTHER 04/14/17 16:03 04/15/17 10:52 (Heparin Inj) 8,000 units UNSCH PRN IV FLUSH 04/14/17 16:15 Sodium Chloride 1,000 ml @ 200 mls/hr Q5H PRN IV 04/14/17 16:03 Sodium Chloride 1,000 ml @ 0 mls/hr Q0M PRN OTHER 04/14/17 16:03 (Mannitol Inj) 12.5 gm UNSCH PRN IV 04/14/17 16:15 (Albumin 25% Inj) 25 gm UNSCH PRN IV 04/14/17 16:15 (NS Flush) 5 ml UNSCH PRN IV FLUSH 04/14/17 16:15 (Heparin Inj) UNSCH PRN .XX 04/14/17 16:15 (Gentamicin (Dialysis) Inj) 20 mg UNSCH PRN OTHER 04/14/17 16:15 (Zofran Inj) 4 mg UNSCH PRN IV PUSH 04/14/17 16:15 (Tylenol) 650 mg UNSCH PRN PO 04/14/17 16:15 04/15/17 11:10 (Benadryl) 25 mg UNSCH PRN PO 04/14/17 16:15 (Nitrostat Sl) 0.4 mg UNSCH PRN SL 04/14/17 16:15 (Catapres) 0.1 mg UNSCH PRN PO 04/14/17 16:15 04/15/17 10:21 (Epogen Inj) 4,000 units UNSCH PRN IV 04/14/17 16:15 04/15/17 10:51 (Gelfoam 12 Mm/7 Mm Top) 1 foam UNSCH PRN TOP 04/14/17 16:15 04/15/17 10:52 (Ultram) 50 mg Q6H PRN PO 04/14/17 21:00 (Trandate) 100 mg Q12HR PO 04/15/17 21:00 Physical Exam Vital Signs Vital Signs Date Time Temp Pulse Resp B/P (MAP) Pulse Ox O2 Delivery O2 Flow Rate FiO2 04/15/17 08:00 97.9 87 18 185/95 (125) 90 04/14/17 08:44 Room Air I/O 04/15/17 04/15/17 04/16/17 08:00 16:00 00:00 Output Total 2500 ml Balance -2500 ml Lab Results Test 04/15/17 08:30 White Blood Count 5.3 TH/MM3 Red Blood Count 3.78 MIL/MM3 Hemoglobin 11.3 GM/DL Hematocrit 35.1 % Mean Corpuscular Volume 92.9 FL Mean Corpuscular Hemoglobin 30.1 PG Mean Corpuscular Hemoglobin Concent 32.3 % Red Cell Distribution Width 17.6 % Platelet Count 197 TH/MM3 Mean Platelet Volume 8.1 FL Neutrophils (%) (Auto) 78.4 % Lymphocytes (%) (Auto) 10.6 % Monocytes (%) (Auto) 5.9 % Eosinophils (%) (Auto) 4.3 % Basophils (%) (Auto) 0.8 % Neutrophils # (Auto) 4.2 TH/MM3 Lymphocytes # (Auto) 0.6 TH/MM3 Monocytes # (Auto) 0.3 TH/MM3 Eosinophils # (Auto) 0.2 TH/MM3 Basophils # (Auto) 0.0 TH/MM3 CBC Comment DIFF FINAL Differential Comment Blood Urea Nitrogen 46 MG/DL Creatinine 8.24 MG/DL Random Glucose 138 MG/DL Calcium Level 8.5 MG/DL Sodium Level 137 MEQ/L Potassium Level 4.0 MEQ/L Chloride Level 101 MEQ/L Carbon Dioxide Level 25.9 MEQ/L Anion Gap 10 MEQ/L Estimat Glomerular Filtration Rate 7 ML/MIN Assessment & Plan Problem List: (1) ESRD (end stage renal disease) ICD Codes: N18.6 - End stage renal disease Status: Chronic Assessment & Plan Estimated LOS: days reconsult when patient available. Virgilio West MD Apr 15, 2017 12:40
[2017-04-15] MEDS: traMADol HCL 50 MG TAB PO PRN ×2 (12:58→18:31)
[2017-04-15] MEDS ORDERED: GLUCAGON 1 MG/ML VIAL OTHER PRN (13:15)
[2017-04-15] MEDS ORDERED: DEXTROSE 50% IN WATER 50 ML VIAL(D50) IV PUSH PRN (13:15)
--- NOTE | 2017-04-15 13:41 | HHI.PR ---
Subjective Remarks Follow-up syncope/flare up shingles/end-stage renal disease on HD 04/15/17-patient seen and examined, states he's going to withdrawal as his last use of heroin was 3 days ago however patient not currently on any methadone. Patient with also shingles to left anterior chest. Has HD today Objective Vitals Vital Signs Date Time Temp Pulse Resp B/P (MAP) Pulse Ox O2 Delivery O2 Flow Rate FiO2 04/15/17 12:00 98.1 86 16 195/104 (134) 96 04/15/17 08:00 97.9 87 18 185/95 (125) 90 04/15/17 05:03 70 04/15/17 04:00 98.2 72 20 198/114 (142) 94 04/15/17 02:35 186/100 (128) 04/15/17 00:55 79 16 206/105 (138) 95 04/15/17 00:52 210/110 (143) 04/15/17 00:50 82 16 219/112 (147) 95 04/15/17 00:45 98.5 79 16 222/105 (144) 95 04/14/17 23:18 98.2 58 16 241/116 (157) 95 04/14/17 21:03 233/135 (167) 04/14/17 21:02 97.6 72 20 232/133 (166) 95 I/O 04/14/17 04/14/17 04/14/17 04/15/17 04/15/17 04/15/17 07:00 15:00 23:00 07:00 15:00 23:00 Intake Total 360 ml Output Total 3000 ml 2500 ml Balance 360 ml -3000 ml -2500 ml Intake Oral 360 ml Output Hemodialysis 3000 ml 2500 ml # Voids 2 Result Diagram: 04/15/1782904/15/1730 Imaging Last Impressions Head CT 04/14/17836 Signed Impressions: Service Date/Time: Friday, April 14, 2017 08:58 - CONCLUSION: Normal examination. Todd Price MD Chest X-Ray 04/14/17836 Signed Impressions: Service Date/Time: Friday, April 14, 2017 08:53 - CONCLUSION: No acute disease. No significant change has occurred. Todd Price MD Carotid Artery Ultrasound 04/14/17 0000 Signed Impressions: Service Date/Time: Friday, April 14, 2017 10:34 - CONCLUSION: Moderate amount of plaque but no hemodynamically significant stenosis in either carotid artery. Sb Zepeda MD Objective Remarks GENERAL: NAD SKIN: Warm and dry. HEAD: Normocephalic. EYES: No scleral icterus. No injection or drainage. NECK: Supple, trachea midline. No JVD or lymphadenopathy. CARDIOVASCULAR: Regular rate and rhythm without murmurs, gallops, or rubs. RESPIRATORY: Breath sounds equal bilaterally. No accessory muscle use. GASTROINTESTINAL: Abdomen soft, non-tender, nondistended. MUSCULOSKELETAL: No cyanosis, or edema. BACK: Nontender without obvious deformity. No CVA tenderness. A/P Problem List: (1) Herpes zoster ICD Code: B02.9 - Zoster without complications (2) Syncope ICD Code: R55 - Syncope and collapse Status: Acute (3) Opioid withdrawal ICD Code: F11.23 - Opioid dependence with withdrawal Status: Acute (4) ESRD (end stage renal disease) ICD Code: N18.6 - End stage renal disease Status: Acute (5) Hypertension ICD Code: I10 - Essential (primary) hypertension Status: Acute Assessment and Plan 56-year-old man with Syncope Work out so far unremarkable Head CT, carotid ultrasound unremarkable Herpes zoster flareup Start Valacyclovir 1 g every 8 hour 7 days End-stage renal disease on hemodialysis Appreciate input from nephrology and continue with current HD Check phosphorus and all electrolyte, History of heroine use Check UDS Patient will need appointment with methadone clinic Tobacco abuse Counseled to quit Start nicotine patch Diabetes type 2 Check hemoglobin A1c Start insulin sliding scale Benign labile hypertension Continue outpatient medications Sb Gordillo MD Apr 15, 2017 13:41
[2017-04-15] MEDS: NICOTINE 21 MG/24 HR PATCH T-DERMAL SCH (16:20)
[2017-04-15] MEDS: REMOVE OLD PATCH T-DERMAL SCH (16:20)
[2017-04-15] MEDS: INSULIN ASPART SUPPLEMENTAL SCALE SQ SCH ×2 (17:42→21:00)
[2017-04-15] MEDS: LABETALOL HCL 100 MG TAB PO SCH (21:42)
[2017-04-15] MEDS ORDERED: ACETAMINOPHEN 325 MG TAB PO ONE (22:45)
[2017-04-15] MEDS ORDERED: LORazepam 1 MG TAB PO ONE (23:15)
[2017-04-16] VITALS: BP 148/91; PULSE 81; RESP 20; TEMP 98.2; O2SAT 94
[2017-04-16] MEDS: traMADol HCL 50 MG TAB PO PRN ×2 (00:53→06:38)
[2017-04-16 04:00] VITALS: BP 126/83; PULSE 76; RESP 20; TEMP 98.5; O2SAT 95
[2017-04-16] MEDS: ALPRAZolam 0.25 MG TAB PO PRN (06:39)
[2017-04-16] MEDS: valACYclovir HCL 500 MG TAB PO SCH (06:39)
[2017-04-16] MEDS: CHOLECALCIFEROL (VIT D3) 5000 UNIT CAP PO SCH (07:40)
[2017-04-16] MEDS: LABETALOL HCL 100 MG TAB PO SCH (07:40)
[2017-04-16] MEDS: cloNIDine HCL 0.3 MG TAB PO SCH (07:40)
[2017-04-16] MEDS: NICOTINE 21 MG/24 HR PATCH T-DERMAL SCH (07:40)
[2017-04-16] MEDS: DOXYCYCLINE HYCLATE 100 MG CAP PO SCH (07:41)
[2017-04-16] MEDS: LOSARTAN 50 MG TAB PO SCH (07:41)
[2017-04-16] MEDS: DOCUSATE SODIUM 50 MG/SENNA 8.6 MG TAB PO SCH (07:41)
[2017-04-16] MEDS: PRAZOSIN HCL 1 MG CAP PO SCH (07:41)
[2017-04-16] MEDS: NIFEdipine 60 MG SUSTAINED RELEASE TAB PO SCH (07:41)
[2017-04-16] MEDS: hydrALAZINE HCL 100 MG TAB PO SCH (07:41)
[2017-04-16] MEDS: INSULIN ASPART SUPPLEMENTAL SCALE SQ SCH (07:42)
[2017-04-16] MEDS: REMOVE OLD PATCH T-DERMAL SCH (07:48)
[2017-04-16 08:00] VITALS: BP 147/83; PULSE 79; RESP 20; TEMP 98.2; O2SAT 95
[2017-04-16 09:50] VITALS: O2SAT 95
--- NOTE | 2017-04-16 10:22 | HHI.PR ---
Subjective Remarks Follow-up syncope/flare up shingles/end-stage renal disease on HD 04/15/17-patient seen and examined, states he's going to withdrawal as his last use of heroin was 3 days ago however patient not currently on any methadone. Patient with also shingles to left anterior chest. Has HD today 04/16/17-patient seen and examined, BP well controlled now. Patient states he is not himself even though he is alert and oriented 3. Afebrile. Objective Vitals Vital Signs Date Time Temp Pulse Resp B/P (MAP) Pulse Ox O2 Delivery O2 Flow Rate FiO2 04/16/17 08:00 98.2 79 20 147/83 (104) 95 04/16/17 04:00 98.5 76 20 126/83 (97) 95 04/16/17 00:00 98.2 81 20 148/91 (110) 94 04/15/17 23:01 54 04/15/17 20:10 70 04/15/17 20:00 98.6 81 20 110/66 (81) 97 04/15/17 16:00 97.9 88 16 171/82 (111) 94 04/15/17 12:00 98.1 86 16 195/104 (134) 96 I/O 04/15/17 04/15/17 04/15/17 04/16/17 04/16/17 04/16/17 07:00 15:00 23:00 07:00 15:00 23:00 Intake Total 240 ml 240 ml Output Total 2500 ml Balance -2260 ml 240 ml Intake Oral 240 ml 240 ml Output Hemodialysis 2500 ml # Voids 2 4 Result Diagram: 04/15/1782904/15/17829 Imaging Last Impressions Head CT 04/14/17836 Signed Impressions: Service Date/Time: Friday, April 14, 2017 08:58 - CONCLUSION: Normal examination. Todd Price MD Chest X-Ray 04/14/17836 Signed Impressions: Service Date/Time: Friday, April 14, 2017 08:53 - CONCLUSION: No acute disease. No significant change has occurred. Todd Price MD Carotid Artery Ultrasound 04/14/17 0000 Signed Impressions: Service Date/Time: Friday, April 14, 2017 10:34 - CONCLUSION: Moderate amount of plaque but no hemodynamically significant stenosis in either carotid artery. Sb Zepeda MD Objective Remarks GENERAL: NAD SKIN: Warm and dry. HEAD: Normocephalic. EYES: No scleral icterus. No injection or drainage. NECK: Supple, trachea midline. No JVD or lymphadenopathy. CARDIOVASCULAR: Regular rate and rhythm without murmurs, gallops, or rubs. RESPIRATORY: Breath sounds equal bilaterally. No accessory muscle use. GASTROINTESTINAL: Abdomen soft, non-tender, nondistended. MUSCULOSKELETAL: No cyanosis, or edema. BACK: Nontender without obvious deformity. No CVA tenderness. Procedures None A/P Problem List: (1) Herpes zoster ICD Code: B02.9 - Zoster without complications (2) Syncope ICD Code: R55 - Syncope and collapse Status: Resolved (3) Opioid withdrawal ICD Code: F11.23 - Opioid dependence with withdrawal Status: Acute (4) ESRD (end stage renal disease) ICD Code: N18.6 - End stage renal disease Status: Chronic (5) Hypertension ICD Code: I10 - Essential (primary) hypertension Status: Chronic Assessment and Plan 56-year-old man with Syncope-resolved Work out so far unremarkable Head CT, carotid ultrasound unremarkable Herpes zoster flareup Continue Valacyclovir 1 g every 8 hour 7 days End-stage renal disease on hemodialysis Appreciate input from nephrology and continue with current HD Patient advised on compliance History of heroine use UDS positive for cocaine Patient will need appointment with methadone clinic Tobacco abuse Counseled to quit Continue nicotine patch Diabetes type 2 Check hemoglobin A1c Continue insulin sliding scale Benign labile hypertension Currently normotensive Continue outpatient medications Sb Gordillo MD Apr 16, 2017 10:22
[2017-04-16] MEDS ORDERED: NIFE60TA8 PO (10:29)
[2017-04-16] MEDS ORDERED: LANT500 CHEW (10:29)
[2017-04-16] MEDS ORDERED: PRAZ1 PO (10:29)
[2017-04-16] MEDS ORDERED: COZA50TA PO (10:29)
[2017-04-16] MEDS ORDERED: HYDR-3801 PO (10:29)
[2017-04-16] MEDS ORDERED: VALT500T PO (10:29)
[2017-04-16] MEDS ORDERED: LABE100T2 PO (10:29)
[2017-04-16] MEDS ORDERED: CLON-481 PO (10:29)
--- NOTE | 2017-04-16 10:33 | HHI.DS ---
Discharge Summary Admission Date Apr 14, 2017 at 10:24 Discharge Date: Apr 16, 2017 Admitting Diagnosis syncope (1) Herpes zoster ICD Code: B02.9 - Zoster without complications (2) Syncope ICD Code: R55 - Syncope and collapse Status: Resolved (3) Opioid withdrawal ICD Code: F11.23 - Opioid dependence with withdrawal Status: Acute (4) ESRD (end stage renal disease) ICD Code: N18.6 - End stage renal disease Status: Chronic (5) Hypertension ICD Code: I10 - Essential (primary) hypertension Status: Chronic Procedures None Brief History - From Admission 56-year-old male with history of end-stage renal disease on dialysis last dialysis on Monday, follows up with Dr. Patel, HTN, HLD, questionable h/o Afib not on anticoagulation,. presents to the emergency room because he has not been feeling well for several days. He complains of dizziness, had a syncopal episode this morning and came for further evaluation. He has a rash on his left chest was diagnosed with shingles and is taking ganciclovir for several days now. He denies any fevers, chest pains, shortness of breath, or any other symptoms. CBC/BMP: 04/15/17 0830 04/15/17 0830 Significant Findings Laboratory Tests Test 04/14/17 08:40 04/15/17 08:30 04/15/17 22:50 Red Blood Count 3.59 MIL/MM3 (4.50-5.90) 3.78 MIL/MM3 (4.50-5.90) Hemoglobin 10.7 GM/DL (13.0-17.0) 11.3 GM/DL (13.0-17.0) Hematocrit 33.4 % (39.0-51.0) 35.1 % (39.0-51.0) Red Cell Distribution Width 17.5 % (11.6-17.2) 17.6 % (11.6-17.2) Neutrophils (%) (Auto) 83.3 % (16.0-70.0) 78.4 % (16.0-70.0) Lymphocytes (%) (Auto) 6.1 % (9.0-44.0) Lymphocytes # (Auto) 0.5 TH/MM3 (1.0-4.8) 0.6 TH/MM3 (1.0-4.8) Prothrombin Time 11.7 SEC (9.8-11.6) Blood Urea Nitrogen 57 MG/DL (7-18) 46 MG/DL (7-18) Creatinine 9.65 MG/DL (0.60-1.30) 8.24 MG/DL (0.60-1.30) Random Glucose 162 MG/DL (74-106) 138 MG/DL (74-106) Albumin 2.8 GM/DL (3.4-5.0) Calcium Level 8.1 MG/DL (8.5-10.1) Sodium Level 135 MEQ/L (136-145) Carbon Dioxide Level 20.4 MEQ/L (21.0-32.0) Estimat Glomerular Filtration Rate 6 ML/MIN (>89) 7 ML/MIN (>89) Eosinophils (%) (Auto) 4.3 % (0.0-4.0) Urine Benzodiazepines Screen POS (NEG) Urine Cocaine Screen POS (NEG) Imaging Last Impressions Head CT 04/14/17836 Signed Impressions: Service Date/Time: Friday, April 14, 2017 08:58 - CONCLUSION: Normal examination. Todd Price MD Chest X-Ray 04/14/17836 Signed Impressions: Service Date/Time: Friday, April 14, 2017 08:53 - CONCLUSION: No acute disease. No significant change has occurred. Todd Price MD Carotid Artery Ultrasound 04/14/17 0000 Signed Impressions: Service Date/Time: Friday, April 14, 2017 10:34 - CONCLUSION: Moderate amount of plaque but no hemodynamically significant stenosis in either carotid artery. Sb Zepeda MD PE at Discharge GENERAL: NAD SKIN: Warm and dry. HEAD: Normocephalic. EYES: No scleral icterus. No injection or drainage. NECK: Supple, trachea midline. No JVD or lymphadenopathy. CARDIOVASCULAR: Regular rate and rhythm without murmurs, gallops, or rubs. RESPIRATORY: Breath sounds equal bilaterally. No accessory muscle use. GASTROINTESTINAL: Abdomen soft, non-tender, nondistended. MUSCULOSKELETAL: No cyanosis, or edema. BACK: Nontender without obvious deformity. No CVA tenderness. Hospital Course Patient admitted secondary to syncope for which a workup including head CT and carotid ultrasound and 2-D echo were unremarkable patient's condition improved. Nephrology was consulted and patient underwent hemodialysis. He was continued on his treatment for hypertension however Lopressor was discontinued and patient was started on labetalol 100 mg by mouth every 12 hours with improvement of BP. His medication for shingles were adjusted. DVT prophylaxis was provided. Pt Condition on Discharge: Stable Discharge Disposition: Discharge Home Discharge Time: <= 30 minutes Discharge Instructions DIET: Follow Instructions for: Renal Failure Diet Activities you can perform: Regular-No Restrictions Follow up Referrals: Nephrology - 2-3 Days PCP Follow-up - 1 Week New Medications: Clonidine (Catapres) 0.3 Mg Tab 0.3 MG PO TID for Blood Pressure Management, #90 TAB 3 Refills Hydralazine (Hydralazine) 100 Mg Tab 50 MG PO QID for Blood Pressure Management, #120 TAB 3 Refills Take with meals Labetalol (Labetalol) 100 Mg Tab 100 MG PO Q12HR for Blood Pressure Management, #60 TAB 3 Refills Lanthanum (Fosrenol) 500 Mg Tab 1000 MG CHEW TIDPC for Electrolyte Replacement, #90 EA 3 Refills Losartan (Cozaar) 50 Mg Tab 100 MG PO DAILY for Blood Pressure Management, #30 TAB 3 Refills Nifedipine ER 24 HR (Nifedipine ER 24 HR) 60 Mg Tab 60 MG PO BID for Blood Pressure Management, #60 TAB Prazosin (Minipress) 1 Mg Cap 1 MG PO TID for Blood Pressure Management, #120 CAP 3 Refills Valacyclovir (Valtrex) 500 Mg Tab 1000 MG PO Q8HR for Infection, #12 TAB Continued Medications: Cholecalciferol (Dialyvite Vitamin D 5000) 5,000 Unit Cap 5000 UNITS PO DAILY for Nutritional Supplement, CAP 0 Refills Doxycycline Hyclate (Doxycycline Hyclate) 100 Mg Cap 100 MG PO BID for Infection, CAP 0 Refills Discontinued Medications: Clonidine (Clonidine) 0.3 Mg Tab 0.3 MG PO TID for Blood Pressure Management, #60 TAB 0 Refills Hydralazine (Hydralazine) 100 Mg Tab 50 MG PO QID for Blood Pressure Management, TAB 0 Refills Take with meals Lanthanum (Fosrenol) 1,000 Mg Tab 1000 MG CHEW TIDPC for Reduce Phosphorous, #90 TAB 0 Refills Losartan (Losartan) 100 Mg Tab 100 MG PO DAILY for Blood Pressure Management, #30 TAB 0 Refills Metoprolol Tartrate (Metoprolol Tartrate) 50 Mg Tab 50 MG PO BID, #60 TAB 0 Refills Nifedipine ER 24 HR (Nifedipine ER 24 HR) 60 Mg Tab 60 MG PO BID, #30 TAB 0 Refills Prazosin (Prazosin) 1 Mg Cap 1 MG PO TID for Blood Pressure Management, #90 CAP 0 Refills Valacyclovir (Valacyclovir) 500 Mg Tab 500 MG PO BID for Mgmt Viral Infection, #60 TAB 0 Refills Sb Gordillo MD Apr 16, 2017 10:33
--- NOTE | 2017-04-16 11:17 | HHI.NPPN ---
Subjective History of Present Illness 56-year-old male with past medical history of hypertension, diabetes mellitus, end-stage renal disease on hemodialysis Monday, and Monday, hepatitis C, gastroesophageal reflux disease who was brought to the hospital because of dizziness and confusion. I was called to see the patient for the management of dialysis. The patient has been on hemodialysis Monday, and Monday ago following with Dr. Matthews in [facility]. Additional Remarks Patient is alert, has headache, afebrile, no SOB. Review of Systems General Constitutional: Fatigue Respiratory Lungs: SOB Cardiovascular Cardiac: Edema, MARIE Objective Data Data Vital Signs Date Time Temp Pulse Resp B/P (MAP) Pulse Ox O2 Delivery O2 Flow Rate FiO2 04/16/17 09:50 95 21 04/16/17 08:00 98.2 79 20 147/83 (104) 95 04/16/17 04:00 98.5 76 20 126/83 (97) 95 04/16/17 00:00 98.2 81 20 148/91 (110) 94 04/15/17 23:01 54 04/15/17 20:10 70 04/15/17 20:00 98.6 81 20 110/66 (81) 97 04/15/17 16:00 97.9 88 16 171/82 (111) 94 04/15/17 12:00 98.1 86 16 195/104 (134) 96 -: 04/15/17 0830 04/15/17 0830 Physical Exam General Appearance: No Acute Distress, Comfortable Eyes Eye Exam: Pupils Equal Throat Throat Exam: Oral Mucosa Villalba & Moist Pulmonary Resp Exam: Clear Bilaterally, Breath Sounds Equal, No Distress Gastrointestinal/Abdomen GI Exam: Soft, Non-Tender, Bowel Sounds Present Integumentary Skin Exam: Clear, Warm Extremeties Extremities Exam: Trace Edema Neurologic Neuro Exam: Alert, Awake Psychiatric Psych Exam: Appropriate Responses Assessment/Plan Assessment Summary: Fluid/Volume Overload, Hypertension, End Stage Renal Disease Problem List: (1) Syncope ICD Codes: R55 - Syncope and collapse Status: Resolved (2) Neuropathy ICD Codes: G62.9 - Polyneuropathy, unspecified Status: Acute (3) Generalized weakness ICD Codes: R53.1 - Weakness Status: Acute (4) Hypertension ICD Codes: I10 - Essential (primary) hypertension Status: Chronic (5) ESRD (end stage renal disease) ICD Codes: N18.6 - End stage renal disease Status: Chronic Plan Patient has been non compliant. Mentation is better and less confused. BP is better, started on Labetalol. HD now, he is TTS. Control BP, has been on multiple meds. Discuss with the patient to be compliant with HD and meds. Now for D/C, to go for HD on . and follow with Dr. Matthews. Problem Qualifiers (1) Syncope: Qualified Codes: R55 - Syncope and collapse Jeovany Singh MD Apr 16, 2017 11:17
[2017-04-16 12:00] VITALS: BP 127/82; PULSE 81; RESP 20; TEMP 97.9; O2SAT 97
[2017-04-17 13:29] LABS: HEMOGLOBIN A1a 1.3 %; HEMOGLOBIN A1b 2.2 %; HEMOGLOBIN Ao 82.7 %; HEMOGLOBIN LA1C 2.3 %; HEMOGLOBIN P3 6.1 %
== END 2017-04-16 16:38 | disposition home or self-care (01) | DRG 312 ==
LOC: NEPE 08:26 → NEDA 10:18 → OBSVTOIN 10:24 → N05B 11:14
PROVIDERS: ADMIT Hospitalist; ATTEND Hospitalist
PROC: 5A1D60Z (ICD-10-PCS; principal; 2017-04-14)
DX: R55 Syncope and collapse (principal); E11.22 Type 2 diabetes mellitus with diabetic chronic kidney disease; N18.6 End stage renal disease; I12.0 Hypertensive chronic kidney disease with stage 5 chronic kidney disease or end stage renal disease; K86.1 Other chronic pancreatitis; E87.70 Fluid overload, unspecified; F11.23 Opioid dependence with withdrawal; Z99.2 Dependence on renal dialysis; Z79.84 Long term (current) use of oral hypoglycemic drugs; B02.9 Zoster without complications; R10.32 Left lower quadrant pain; Z87.01 Personal history of pneumonia (recurrent); K21.9 Gastro-esophageal reflux disease without esophagitis; B19.20 Unspecified viral hepatitis C without hepatic coma; F17.210 Nicotine dependence, cigarettes, uncomplicated; F41.9 Anxiety disorder, unspecified; F32.9 Major depressive disorder, single episode, unspecified; E78.5 Hyperlipidemia, unspecified; Z91.15 Patient's noncompliance with renal dialysis; D64.9 Anemia, unspecified; R42 Dizziness and giddiness; E11.42 Type 2 diabetes mellitus with diabetic polyneuropathy; Z91.19 Patient's noncompliance with other medical treatment and regimen
CPT/HCPCS: 70450; 71010; 80048; 80053; 80307; 82550; 82948; 83036; 83735; 84484; 85025; 85610; 85730; 90935; 93005; 93306; 93880; 96374; J1650; J1815; J2060; J2405; J7030; Q4081

== ENCOUNTER 2017-04-19 22:36 | Emergency (ER) | payer MEDICARE, OTHER ==
[~2017-04-19] VITALS: Ht 175.3 cm; Wt 69.0 kg
[~2017-04-19 22:36] MED LIST changes: +COZA50TA PO; +DIALCAP PO; -DILA2TAB4 PO; +DOXY100C PO; -FOLI1TAB PO; +HYDR-3801 PO; -HYDRA50 PO; +LABE100T2 PO; +LANT500 CHEW; -METO25 PO; +NIFE60TA8 PO; -NIFE90 PO; +PRAZ1 PO; -SEVEL800 PO; -SUCR5CHW PO; +VALT500T PO; -WALKER ROLLING
[2017-04-19 22:48] VITALS: BP 152/87; PULSE 77; RESP 18; TEMP 98.7; O2SAT 94
[2017-04-19 23:02] VITALS: O2SAT 95
[2017-04-19 23:21] LABS: AUTOMATED NEUTROPHIL # 4.1 TH/MM3 (1.8-7.7); BASOPHIL % 0.6 % (0.0-2.0); EOSINOPHIL # 0.1 TH/MM3 (0-0.4); HEMATOCRIT 36.9 % (39.0-51.0); HEMO FLAGS DIFF FINAL; LYMPH % 20.2 % (9.0-44.0); LYMPHOCYTE # 1.2 TH/MM3 (1.0-4.8); MEAN CELL VOLUME 92.2 FL (80.0-100.0); MEAN CORPUSCULAR HEMOGLOBIN 30.8 PG (27.0-34.0); MEAN CORPUSCULAR HGB CONC 33.3 % (32.0-36.0); MONO % 7.7 % (0.0-8.0); NEUT % 69.5 % (16.0-70.0); PLATELET COUNT 265 TH/MM3 (150-450); RED BLOOD COUNT 4.01 MIL/MM3 (4.50-5.90); RED CELL DISTRIBUTION WIDTH 17.2 % (11.6-17.2); WHITE BLOOD COUNT 5.9 TH/MM3 (4.0-11.0)
[2017-04-19 23:38] LABS: ALKALINE PHOSPHATASE 101 U/L (45-117); TOTAL BILIRUBIN ADULT 0.6 MG/DL (0.2-1.0)
--- NOTE | 2017-04-19 23:39 | RADRPT ---
EXAM DATE/TIME: 04/19/2017 23:16 [facility] COMPARISON: CHEST SINGLE AP, April 14, 2017, 8:53. INDICATIONS : Short of breath. MEDICAL HISTORY : Hypertension. Shingles. Renal failure, chronic. SURGICAL HISTORY : Appendectomy. ENCOUNTER: Initial ACUITY: 1 day PAIN SCORE: Non-responsive. LOCATION: Bilateral chest FINDINGS: A single view of the chest demonstrates patchy basilar airspace disease similar to April 14. Trac e pleural fluid. Cardiomegaly. CONCLUSION: 1. Stable patchy basilar airspace disease compared with April 14. Trace pleural fluid. Gerson Galvan MD on April 19, 2017 at 23:35 Board Certified Radiologist. This report was verified electronically.
[2017-04-19 23:41] LABS: ALT (GPT) 32 U/L (12-78); ANION GAP 14 MEQ/L (5-15); AST (GOT) 54 U/L (15-37); BLOOD UREA NITROGEN 102 MG/DL (7-18); CHLORIDE 97 MEQ/L (98-107); GLOMERULAR FILTRATION RATE 4 ML/MIN (>89); MAGNESIUM 2.1 MG/DL (1.5-2.5); POTASSIUM 6.1 MEQ/L (3.5-5.1); SODIUM (NA) 133 MEQ/L (136-145)
--- NOTE | 2017-04-20 00:05 | PD ---
HPI Chief Complaint: Abdominal Pain Time Seen by Provider: 22:52 Travel History International Travel<30 days: No Contact w/Intl Traveler<30days: No Traveled to known affect area: No History of Present Illness HPI The patient is a 56 year old male who presents to the [facility] emergency department with a history of recurrent abdominal pain that he reports began again an hour prior to arrival. The patient reports that the pain is a 10 out of 10 in severity, however on arrival from ambulance services he was sleeping. The patient reports that he does have a history of IV drug use. He reports that he last used heroin 2 weeks ago, last used cocaine yesterday, and last used Xanax tonight. The patient reports he was recently admitted to the hospital for his abdominal pain, however after reviewing the electronic medical record he was admitted for syncope. The patient reports that he did not have his last dialysis session this week due to being in the hospital on Monday. The patient has been on hemodialysis for the last 2 years. The patient's blood sugar was noted prior to arrival be 98. He denies being on any blood thinners. He reports that he last moved his bowels yesterday. He denies having any blood in his stool or black or tarry stools. He reports having one episode of vomiting associated with this. He reports that the pain is a sharp pain in bilateral lower quadrants of the abdomen. He denies having any alleviating or aggravating factors to the pain. On review of systems otherwise, the patient denies having any known recent fevers, worsening cough or congestion, neck pain , chest pain, shortness of breath, or neurologic symptoms. [facility] Past Medical History Narrative Medical The patient's past medical history is significant for polysubstance abuse, chronic renal failure on hemodialysis, hepatitis C, hyperlipidemia, hypertension , prior history of myocardial infarction, diabetes mellitus, acid reflux, reported prior history of bowel obstruction. Arthritis: No Atrial Fibrillation: Yes Anxiety: Yes Depression: Yes Heart Rhythm Problems: No Cancer: No Cardiovascular Problems: Yes (HTN, PR) High Cholesterol: No Chest Pain: No Congestive Heart Failure: No Diabetes: Yes Patient Takes Glucophage: No GERD: Yes Genitourinary: No Hepatitis: Yes (c) Hypertension: Yes Insomnia: Yes Musculoskeletal: No Neurologic: No Psychiatric: Yes Reproductive: No Respiratory: No Migraines: Yes Pancreatitis: Yes Pneumonia: Yes Renal Failure: Yes Thyroid Disease: Yes Past Surgical History Narrative Surgical The patient's past surgical history is significant for exploratory laparoscopy related to a bowel obstruction, history of AV fistula placement in the left upper extremity. Abdominal Surgery: Yes (exploratory laporoscopy) AICD: No Appendectomy: Yes Arteriovenous Shunt: No Cardiac Surgery: No Ear Surgery: No Endocrine Surgery: No Eye Surgery: No Genitourinary Surgery: No Gynecologic Surgery: No Insulin Pump: No Joint Replacement: No Oral Surgery: No Pacemaker: No Thoracic Surgery: No Other Surgery: Yes (av fistula) Social History Alcohol Use: No Tobacco Use: Yes (07/25 ppd) Substance Use: Yes (marijuana, xanax, cocaine, heroin) Allergies-Medications (Allergen,Severity, Reaction): Coded Allergies: morphine (Verified Allergy, Intermediate, VOMITING, 04/19/17) Reported Meds & Prescriptions Reported Meds & Active Scripts Active Fosrenol (Lanthanum Carbonate) 500 Mg Tab 1,000 Mg CHEW TIDPC Cozaar (Losartan Potassium) 50 Mg Tab 100 Mg PO DAILY Nifedipine ER 24 HR (Nifedipine) 60 Mg Tab 60 Mg PO BID Labetalol (Labetalol HCl) 100 Mg Tab 100 Mg PO Q12HR Minipress (Prazosin HCl) 1 Mg Cap 1 Mg PO TID Hydralazine (Hydralazine HCl) 100 Mg Tab 50 Mg PO QID Take with meals Catapres (Clonidine) 0.3 Mg Tab 0.3 Mg PO TID Valtrex (Valacyclovir HCl) 500 Mg Tab 1,000 Mg PO Q8HR Reported Dialyvite Vitamin D 5000 (Cholecalciferol) 5,000 Unit Cap 5,000 Units PO DAILY Doxycycline Hyclate 100 Mg Cap 100 Mg PO BID Review of Systems Except as stated in HPI: all other systems reviewed are Neg General / Constitutional: No: Fever Eyes: No: Visual changes HENT: No: Headaches Cardiovascular: No: Chest Pain or Discomfort Respiratory: No: Shortness of Breath Gastrointestinal: Positive: Nausea, Vomiting (times one), Abdominal Pain, No: Diarrhea, Changes in Bowel Habits, Indigestion, Loss of Appetite Genitourinary: No: Urgency, Frequency, Dysuria Musculoskeletal: No: Pain Skin: No Rash Neurologic: No: Weakness Psychiatric: No: Depression Endocrine: No: Polydipsia Hematologic/Lymphatic: No: Easy Bruising Physical Exam Narrative General: The patient is a well-developed well-nourished male, in no acute distress. On arrival to this facility the patient is asleep on the gurney that he is brought in on by ambulance services. Head and Neck exam: Head is normocephalic atraumatic. Eyes: EOMI, pupils are equal round and reactive to light. Nose: Midline septum with pink mucous membranes Mouth: Dentition unremarkable. Moist mucus membranes. Posterior oropharynx is not erythematous. No tonsillar hypertrophy. Uvula midline. Airway patent. Neck: No palpable lymphadenopathy. No nuchal rigidity. No thyromegaly. Cardiovascular: Regular rate and rhythm without murmurs, gallops, or rubs. Lungs: Clear to auscultation bilaterally. No wheezes, rhonchi, or rales. Abdomen: Soft, with reported tenderness on palpation along the suprapubic area and bilateral lower quadrants of the abdomen, no other tenderness on palpation of the other quadrants of the abdomen. No tenderness on palpation specifically over McBurney's point. No guarding, rebound, or rigidity. Negative Flores's sign. Normal bowel sounds are audible. Extremities: No clubbing, cyanosis, or edema. 2+ pulses in all 4 extremities. No calf tenderness on palpation. Back: No costovertebral angle tenderness to palpation. Neurologic Exam: Grossly nonfocal. Skin Exam: The patient has And What Appears to Be Pick [place] along His Lower Extremities. No Evidence of Acute Infection, No Pustules. The Patient on Examination of the Left Upper Quadrant of the Abdomen Has a Dermatomal Pattern Rash Consistent with Shingles. He Reports That He Was Diagnosed with Shingles Approximately a Week Ago. Data Data Last Documented VS Vital Signs Date Time Temp Pulse Resp B/P (MAP) Pulse Ox O2 Delivery O2 Flow Rate FiO2 04/20/17 03:15 04/20/17 02:36 85 16 94 Room Air 04/19/17 23:02 2.00 04/19/17 22:48 98.7 Orders Orders Electrocardiogram (04/19/17 22:52) Complete Blood Count With Diff (04/19/17 22:52) Comprehensive Metabolic Panel (04/19/17 22:52) C-Reactive Protein (Crp) (04/19/17 22:52) Lipase (04/19/17 22:52) Magnesium (Mg) (04/19/17 22:52) Chest, Single Ap (04/19/17 22:52) Iv Access Insert/Monitor (04/19/17 22:52) Ecg Monitoring (04/19/17 22:52) Oximetry (04/19/17 22:52) Ct Abd/Pel W/O Iv Contrast (04/19/17 23:29) Sodium Polysty Sulfate Liq (Kayexalate L (04/20/17 00:45) Hydromorphone Pf Inj (Dilaudid Pf Inj) (04/20/17 02:15) Ondansetron Inj (Zofran Inj) (04/20/17 02:15) Labs Laboratory Tests Test 04/19/17 23:00 White Blood Count 5.9 TH/MM3 Red Blood Count 4.01 MIL/MM3 Hemoglobin 12.3 GM/DL Hematocrit 36.9 % Mean Corpuscular Volume 92.2 FL Mean Corpuscular Hemoglobin 30.8 PG Mean Corpuscular Hemoglobin Concent 33.3 % Red Cell Distribution Width 17.2 % Platelet Count 265 TH/MM3 Mean Platelet Volume 7.8 FL Neutrophils (%) (Auto) 69.5 % Lymphocytes (%) (Auto) 20.2 % Monocytes (%) (Auto) 7.7 % Eosinophils (%) (Auto) 2.0 % Basophils (%) (Auto) 0.6 % Neutrophils # (Auto) 4.1 TH/MM3 Lymphocytes # (Auto) 1.2 TH/MM3 Monocytes # (Auto) 0.5 TH/MM3 Eosinophils # (Auto) 0.1 TH/MM3 Basophils # (Auto) 0.0 TH/MM3 CBC Comment DIFF FINAL Differential Comment Blood Urea Nitrogen 102 MG/DL Creatinine 12.77 MG/DL Random Glucose 136 MG/DL Total Protein 8.3 GM/DL Albumin 3.2 GM/DL Calcium Level 8.8 MG/DL Magnesium Level 2.1 MG/DL Alkaline Phosphatase 101 U/L Aspartate Amino Transf (AST/SGOT) 54 U/L Alanine Aminotransferase (ALT/SGPT) 32 U/L Total Bilirubin 0.6 MG/DL Sodium Level 133 MEQ/L Potassium Level 6.1 MEQ/L Chloride Level 97 MEQ/L Carbon Dioxide Level 22.0 MEQ/L Anion Gap 14 MEQ/L Estimat Glomerular Filtration Rate 4 ML/MIN C-Reactive Protein 2.12 MG/DL Lipase 585 U/L MDM Medical Decision Making Medical Screen Exam Complete: Yes Emergency Medical Condition: Yes Medical Record Reviewed: Yes Interpretation(s) Last Impressions Abdomen/Pelvis CT 04/19/172328 Signed Impressions: Service Date/Time: March 00:49 - CONCLUSION: 1. No acute findings. 2. Stable cortical renal atrophy. Stable nodular thickening of the pleura at the left lung base. 3. Postop cholecystectomy and appendectomy. Gerson Galvan MD Chest X-Ray 04/19/[id number] Signed Impressions: Service Date/Time: Wednesday, April 19, 2017 23:16 - CONCLUSION: 1. Stable patchy basilar airspace disease compared with April 14. Trace pleural fluid. Gerson Galvan MD Differential Diagnosis Bowel obstruction, versus diverticulitis, versus colitis, versus drug-seeking behavior. Narrative Course During the course of the patients emergency department visit, the patients history, examination, and differential diagnosis were reviewed with the patient. The patient had IV access obtained and blood work sent for analysis. The patient was placed on a desk monitor with oximetry and blood pressure monitoring. An ECG was done on arrival. The patient's ECG reveals a sinus rhythm heart rate of 78, QRS duration is 98 ms, QTC 457 ms. No peaked T waves. No acute ST segment elevation The patient was initially provided morphine for pain, Zofran for nausea. The patients laboratory studies were reviewed and remarkable for a white count of 5.9, hemoglobin 12.3, platelets 265 with a normal differential, CMP is remarkable for sodium of 133, potassium 6.1 with mild hemolysis, chloride 97, BUN 102, creatinine 12.77, glucose 136, AST 54, C-reactive protein 2.12, total protein 8.3, albumin 3.2, lipase 585 Radiology studies were reviewed and remarkable for a chest x-ray that shows stable patchy bibasilar airspace disease compared with April 14 chest x-ray , trace pleural fluid. A CT scan of the abdomen and pelvis shows no acute findings. Stable cortical renal atrophy, stable nodular thickening of the pleura the left lung base. Postop cholecystectomy and appendectomy. A call was placed out to the patient's water pump operator. I spoke to Dr. Michele the covering water pump operator. I discussed with him the patient's history, physical exam findings, and laboratory studies. He was agreeable with the plan for the patient to receive a dose of Kayexalate. The patient has an appointment for hemodialysis this morning at 5 AM. He was agreeable with the plan for the patient to be discharged for hemodialysis. The patient is resting comfortably and feels better, is alert and in no distress. The patients results and examination findings were discussed with the patient. The repeat examination is unremarkable and benign. The history, exam, diagnostic testing, and current condition do not suggest any significant pathology to warrant further testing, continued ED treatment, admission, or surgical evaluation at this point. The vital signs have been stable. The patient does not have uncontrollable pain, intractable vomiting, or other significant symptoms. The patient's condition is stable and appropriate for discharge. The patient will pursue further outpatient evaluation with a primary care physician or other designated or consulting physician as indicated in the discharge instructions. The patient expressed understanding and was agreeable with this plan. Physician Communication Physician Communication A call was placed out to the patient's water pump operator, Dr. Matthews. The covering physician, Dr. Michele returned the phone call at approximately 2:25 AM. I discussed the patient's signs, symptoms, examination with him as well as the laboratory studies that were done today. Given the fact that the patient is scheduled for dialysis at 5 AM today he was agreeable with the plan for the patient to be discharged to have his dialysis done this morning. He was also agreeable with plans for the patient to receive a dose of Kayexalate. Diagnosis Primary Impression: Abdominal pain Qualified Codes: R10.30 - Lower abdominal pain, unspecified Additional Impression: Chronic renal failure Qualified Codes: N18.5 - Chronic kidney disease, stage 5 Referrals: Pam Grimaldo MD Patient Instructions: Abdominal Pain (ED), General Instructions Disposition: DISCHARGE HOME Condition: Stable Brandy Lewis MD Apr 20, 2017 00:05
[2017-04-20] MEDS ORDERED: SODIUM POLYSTYRENE SULFONATE SUSP 15 GM/60 ML CUP PO ONE (00:45)
--- NOTE | 2017-04-20 01:25 | RADRPT ---
EXAM DATE/TIME: 04/20/2017 00:49 [facility] COMPARISON: CT ABDOMEN & PELVIS W/O CONTRAST, March 08, 2016, 10:36. INDICATIONS : Abdomen pain. Possible obstruction. ORAL CONTRAST: No oral contrast ingested. RADIATION DOSE: 9.96 CTDIvol (mGy) MEDICAL HISTORY : Cardiovascular disease. Hypertension. Renal failure, chronic.Dialysis Hep C Diabetes SURGICAL HISTORY : Appendectomy. ENCOUNTER: Initial ACUITY: 1 day PAIN SCALE: 7/10 LOCATION: Bilateral abdomen TECHNIQUE: Volumetric scanning of the abdomen and pelvis was performed. Using automated exposure control and ad justment of the mA and/or kV according to patient size, radiation dose was kept as low as reasonably achievable to obtain optimal diagnostic quality images. DICOM format image data is available electro nically for review and comparison. FINDINGS: Compare February 2016. Again seen is some nodular pleural thickening at the left lung base and basal at electasis and scarring similar to prior exam. No acute findings in the liver, spleen or pancreas. Nodular enlargement of both adrenals is stable. H is renal cortical atrophy which is stable. Previous cholecystectomy. No bowel obstruction. No free air or free fluid. Residual contrast in large bowel. No acute bony abno rmalities. Colonic diverticula. CONCLUSION: 1. No acute findings. 2. Stable cortical renal atrophy. Stable nodular thickening of the pleura at the left lung base. 3. Postop cholecystectomy and appendectomy. Gerson Galvan MD on April 20, 2017 at 1:17 Board Certified Radiologist. This report was verified electronically.
[2017-04-20] MEDS ORDERED: ONDANSETRON HCL 4 MG/2 ML VIAL IV PUSH ONE (02:15)
[2017-04-20] MEDS ORDERED: HYDROmorphone HCL PF 1 MG/ML VIAL IV PUSH ONE (02:15)
[2017-04-20 02:36] VITALS: BP 172/84; PULSE 85; RESP 16; O2SAT 94
--- NOTE | 2017-04-20 17:14 | EKG ---
Date Performed: 04/19/2017 Time Performed: 23:07:58 PTAGE: 56 years EKG: Sinus rhythm POSSIBLE LEFT VENTRICULAR HYPERTROPHY ABNORMAL ECG Since PREVIOUS TRACING , no significant change noted PREVIOUS TRACIN04/14/2017 08.42 DOCTOR: Maureen Fermin Interpretating Date/Time 04/20/2017 17:13:45
== END 2017-04-20 03:18 | disposition home or self-care (01) ==
LOC: NEPC 22:36
DX: R10.30 Lower abdominal pain, unspecified (principal); E11.22 Type 2 diabetes mellitus with diabetic chronic kidney disease; I12.9 Hypertensive chronic kidney disease with stage 1 through stage 4 chronic kidney disease, or unspecified chronic kidney disease; N18.9 Chronic kidney disease, unspecified; F19.10 Other psychoactive substance abuse, uncomplicated; B19.20 Unspecified viral hepatitis C without hepatic coma; K21.9 Gastro-esophageal reflux disease without esophagitis; I48.91 Unspecified atrial fibrillation; K85.90 Acute pancreatitis without necrosis or infection, unspecified
CPT/HCPCS: 71010; 74176; 80053; 83690; 83735; 85025; 86140; 93005; 96374; 96375; 99285; J1170; J2405